=== PATIENT | female | born 1950 | race Caucasian/White ===

== ENCOUNTER → 2019-12-13 | Outpatient (CLI) | payer MEDICARE, OTHER ==
--- NOTE | 2019-12-15 10:51 | KCIC ---
BILATERAL SCREENING MAMMOGRAM, 3-D History: Routine screening. Comparison: Bilateral mammogram November 23, 2018 and back to 2013, [facility]. Technique: MLO and CC digital tomosynthesis (3D) images obtained. Radiologist reviewed these images on dedicated workstation. Findings: Breast Tissue Density B : There are scattered areas of fibroglandular density. Parenchymal asymmetries of the upper outer right breast are stable. There are a few benign calcifications. There are no dominant masses, suspicious microcalcifications, or architectural distortion. IMPRESSION: No mammographic evidence of malignancy. Recommend routine screening. BI-RADS category 2: Benign findings. The images were reviewed with computer-aided detection. Patient information is entered into reminder system with a target due date for the next screening mammogram. Mammography is the most sensitive method for finding small breast cancers, but it does not detect them all and is not a substitute for careful clinical examination. A negative mammogram does not negate a clinically suspicious finding and should not result in delay in biopsying a clinically suspicious abnormality. "Our facility is accredited by the [employer] Mammography Program." Electronically signed by: Perico Li MD (12/15/2019 10:48 AM) [facility]
== END | disposition home or self-care (01) ==
LOC: KCIC MAMMO 10:59
PROVIDERS: ATTEND Internal Medicine
DX: Z12.31 Encounter for screening mammogram for malignant neoplasm of breast (principal); N64.89 Other specified disorders of breast
CPT/HCPCS: 77063; 77067

== ENCOUNTER → 2020-12-19 | Outpatient (CLI) | payer MEDICARE, OTHER ==
--- NOTE | 2020-12-20 16:59 | KCIC ---
Bilateral digital screening 2-D and 3-D (digital breast tomosynthesis) mammograms with CAD: Reason for examination: Routine screening. Comparison: Mammogram from 12/13/2019. Interpretation was made with the benefit of CAD. FINDINGS: Breast density: Category B. There are scattered areas of fibroglandular density. No suspicious breast mass, malignant appearing calcifications, or architectural distortion is seen. T here has been no significant change since the previous mammogram. IMPRESSION: No evidence of malignancy. . Assessment: BI-RADS 1. Negative. Recommendation: Routine screening mammograms. The patient's information was entered into the mammography reminder system to receive her results by mail and give a target recall date for the next mammogram. A reminder letter will be generated. Electronically signed by: Fabiana Wheeler MD (12/20/2020 4:57 PM) [email or web address]
== END ==
LOC: KCIC MAMMO 09:59
PROVIDERS: ATTEND Internal Medicine
DX: Z12.31 Encounter for screening mammogram for malignant neoplasm of breast (principal)
CPT/HCPCS: 77063; 77067